=== PATIENT | male | born 1975 | race Caucasian/White ===

== ENCOUNTER 2023-04-01 06:50 | Day surgery (SDC) | payer OTHER ==
[2023-03-31 10:37] VITALS: BMI 34.4
[2023-04-01] MEDS ORDERED: PROPOFOL 40 ML ONE (09:23)
[2023-04-01] MEDS ORDERED: Lidocaine 1% PF 5 ML VIAL ONE (09:23)
== END 2023-04-01 10:19 | disposition home or self-care (01) ==
LOC: CSHSDC 06:50
PROVIDERS: ATTEND Internal Medicine Gastroenterology
PROC: 0DJD8ZZ Inspection of Lower Intestinal Tract, Via Natural or Artificial Opening Endoscopic (ICD-10-PCS; principal; 2023-04-01)
DX: Z12.11 Encounter for screening for malignant neoplasm of colon (principal); K64.9 Unspecified hemorrhoids; K21.9 Gastro-esophageal reflux disease without esophagitis; E78.5 Hyperlipidemia, unspecified; I12.9 Hypertensive chronic kidney disease with stage 1 through stage 4 chronic kidney disease, or unspecified chronic kidney disease; N18.9 Chronic kidney disease, unspecified; F31.9 Bipolar disorder, unspecified; F42.9 Obsessive-compulsive disorder, unspecified; Z88.8 Allergy status to other drugs, medicaments and biological substances
CPT/HCPCS: J2704